=== PATIENT | female | born 1975 | race Caucasian/White ===

== ENCOUNTER 2021-10-17 09:00 | Outpatient (CLI) | payer OTHER | END 2021-10-17 09:01 | disposition home or self-care (01) | LOC: TBSIIMAG 09:00 | PROVIDERS: ATTEND Neurological Surgery | DX: M47.12 Other spondylosis with myelopathy, cervical region (principal); M50.31 Other cervical disc degeneration, high cervical region | CPT/HCPCS: 72040 ==